=== PATIENT | female | born 2000 | race Caucasian/White ===

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

== ENCOUNTER 2021-02-13 02:58 | Emergency (ER) | payer OTHER ==
[2021-02-13 03:17] VITALS: O2SAT 100
[2021-02-13] MEDS ORDERED: TYLENOL 325 MG PO ONE (03:38)
--- NOTE | 2021-02-13 03:43 | ERPHSYRPT ---
- History of Present Illness Source: patient Exam Limitations: no limitations Physician History: The patient is a 20-year-old female with a past medical history significant for psoriatic arthritis presents with a chief complaint of a cough and headache. Onset was around 1700 yesterday evening. In addition to her cough and headache she was also noted to have a fever of 101 Fahrenheit in triage. She states she is got a couple family members at home that have similar symptoms to include fever and cough in addition to rhinorrhea. The patient diarrhea, loss of sense of taste and smell, myalgias, abdominal pain, dysuria, neck pain, sore throat. She reportedly started taking amoxicillin this evening after her family numbers called Dr. Franco Timing/Duration: today Associated Symptoms: nausea, cough, headaches Allergies/Adverse Reactions: No Known Drug Allergies Allergy (Unverified 02/13/21 03:17) Home Medications: metHOTREXate sodium [Methotrexate] 250 mg PO WEEKLY 11/16/15 [History] Cetirizine HCl [Zyrtec] 10 mg PO DAILY 09/16/17 [History] Infliximab 100 mg [Remicade 100MG Injection] 100 mg IJ DIRECTIONS UNKNOWN 11/23/18 [History] Ergocalciferol (Vitamin D2) [Vitamin D] 50,000 units PO WEEKLY 02/13/21 [History] Pnv No.103/Folic/Om3s/Fish Oil [ Gummies] 2 tab PO DAILY 02/13/21 [History] Hx Tetanus, Diphtheria Vaccination/Date Given: Yes Hx Influenza Vaccination/Date Given: No Hx Pneumococcal Vaccination/Date Given: No - Review of Systems Respiratory: Cough, No Dyspnea, No Dyspnea on Exertion (HERNANDEZ) Cardiac: No Chest Pain Abdominal/Gastrointestinal: Nausea, No Vomiting, No Diarrhea Genitourinary Symptoms: No Dysuria, No Frequency, No Hematuria, No , No Vaginal Bleeding, No Vaginal Discharge Musculoskeletal: Back Pain, Myalgias, No Neck Pain Skin: No Rash Neurological: Headache Psychological: No Symptoms All Other Systems: Reviewed and Negative - Past Medical History Pertinent Past Medical History: Yes Neurological History: No Pertinent History ENT History: No Pertinent History Cardiac History: No Pertinent History Respiratory History: No Pertinent History Endocrine Medical History: No Pertinent History Musculoskeletal History: Arthritis GI Medical History: No Pertinent History History: No Pertinent History Psycho-Social History: No Pertinent History Female Reproductive Disorders: No Pertinent History Other Medical History: Psoriatic Arthritis - Past Surgical History Past Surgical History: Yes Neuro Surgical History: No Pertinent History Cardiac: No Pertinent History Respiratory: No Pertinent History Gastrointestinal: Appendectomy Genitourinary: No Pertinent History Musculoskeletal: Other Female Surgical History: No Pertinent History Other Surgical History: HX Right Heel FX - Social History Smoking Status: Never smoker Exposure to second hand smoke: Yes Drug Use: none Patient Lives Alone: No - Nursing Vital Signs Nursing Vital Signs: Initial Vital Signs Temperature 101.2 F 02/13/21 03:15 Pulse Rate 103 H 02/13/21 03:15 Respiratory Rate 18 02/13/21 03:15 Blood Pressure 124/84 02/13/21 03:15 O2 Sat by Pulse Oximetry 100 02/13/21 03:15 Pain Scale Pain Intensity [Lower Back] 9 Pain Intensity [Head] 9 Pain Intensity 7 - Physical Exam General Appearance: no apparent distress Eye Exam: PERRL/EOMI, eyes nml inspection, No scleral icterus Ears, Nose, Throat Exam: normal ENT inspection, TMs normal, pharynx normal, moist mucous membranes, No dry mucous membranes, No pharyngeal erythema Neck Exam: non-tender, supple, No meningismus Respiratory Exam: normal breath sounds, lungs clear, airway intact, No chest tenderness, No respiratory distress, No diminished breath sounds Cardiovascular Exam: normal heart sounds, normal peripheral pulses, tachycardia, No murmur, No edema Gastrointestinal/Abdomen Exam: soft, No tenderness, No distention, No mass, No guarding Back Exam: normal inspection Extremity Exam: normal inspection Neurologic Exam: alert, oriented x 3, cooperative Skin Exam: normal color, dry, other (Skin was hot to touch), No rash, No petechiae, No jaundice, No cyanosis SpO2 Interpretation: normal SpO2: 100 O2 Delivery: Room Air - Course Nursing assessment & vital signs reviewed: Yes Ordered Tests: Active Orders 24 hr Category Date Time Status CHEST 1 VIEW (PORTABLE) Stat Exams 02/13/21 03:39 Taken BMP Stat Lab 02/13/21 03:59 Completed CBC W DIFF Stat Lab 02/13/21 03:59 Completed HCG,QUALITATIVE URINE Stat Lab 02/13/21 03:59 Completed UA W/RFX UR CULTURE Stat Lab 02/13/21 03:43 Completed Medication Summary Discontinued Medications Generic Name Dose Route Start Last Admin Trade Name Freq PRN Reason Stop Dose Admin Acetaminophen 975 mg 02/13/21 03:38 02/13/21 03:48 Tylenol 325 Mg PO 02/13/21 03:39 975 mg STAT ONE Administration Acetaminophen Confirm 02/13/21 03:48 Tylenol 325 Mg Administered 02/13/21 03:49 Dose 975 mg .ROUTE .STK-MED ONE Lab/Rad Data: Laboratory Result Diagrams 02/13/21 03:59 02/13/21 03:59 Laboratory Results 02/13/21 02/13/21 02/13/21 Range/Units 04:03 03:59 03:59 WBC 7.8 (4.0-10.5) K/mm3 RBC 4.94 (4.1-5.4) M/mm3 Hgb 13.3 (12.0-16.0) gm/dl Hct 42.4 (35-47) % MCV 85.8 (78-100) fl MCH 26.9 (26-32) pg MCHC 31.4 L (32-36) g/dl RDW 14.8 H (11.5-14.0) % Plt Count 231 (150-450) K/mm3 MPV 12.7 H (7.5-11.0) fl Gran % 75.3 H (36.0-66.0) % Eos # (Auto) 0.02 (0-0.5) Absolute Lymphs (auto) 0.95 L (1.0-4.6) Absolute Monos (auto) 0.93 (0.0-1.3) Lymphocytes % 12.2 L (24.0-44.0) % Monocytes % 11.9 (0.0-12.0) % Eosinophils % 0.3 (0.00-5.0) % Basophils % 0.3 (0.0-0.4) % Absolute Granulocytes 5.88 (1.4-6.9) Basophils # 0.02 (0-0.4) Sodium 138 (137-145) mmol/L Potassium 3.6 (3.5-5.1) mmol/L Chloride 103 (98-107) mmol/L Carbon Dioxide 22 (22-30) mmol/L Anion Gap 16.8 H (5-15) MEQ/L BUN 8 (7-17) mg/dL Creatinine 0.78 (0.52-1.04) mg/dL Estimated GFR > 60.0 ML/MIN Glucose 100 (74-106) mg/dL Calcium 9.5 (8.4-10.2) mg/dL Urine Color (YELLOW) Urine Appearance (CLEAR) Urine pH (5-6) Ur Specific [place] (1.005-1.025) Urine Protein (Negative) Urine Ketones (NEGATIVE) Urine Blood (0-5) Dominik/ul Urine Nitrite (NEGATIVE) Urine Bilirubin (NEGATIVE) Urine Urobilinogen (0-1) mg/dL Ur Leukocyte Esterase (NEGATIVE) Urine WBC (Auto) (0-5) /HPF Urine RBC (Auto) (0-2) /HPF U Epithel Cells (Auto) (FEW) /HPF Urine Bacteria (Auto) (NEGATIVE) /HPF Urine Mucus (Auto) (NEGATIVE) /HPF Urine Culture Reflexed (NO) Urine Glucose (NEGATIVE) mg/dL Urine HCG, Qual (Negative) SARS-CoV-2 (PCR) NEGATIVE (NEGATIVE) 02/13/21 02/13/21 Range/Units 03:59 03:43 WBC (4.0-10.5) K/mm3 RBC (4.1-5.4) M/mm3 Hgb (12.0-16.0) gm/dl Hct (35-47) % MCV (78-100) fl MCH (26-32) pg MCHC (32-36) g/dl RDW (11.5-14.0) % Plt Count (150-450) K/mm3 MPV (7.5-11.0) fl Gran % (36.0-66.0) % Eos # (Auto) (0-0.5) Absolute Lymphs (auto) (1.0-4.6) Absolute Monos (auto) (0.0-1.3) Lymphocytes % (24.0-44.0) % Monocytes % (0.0-12.0) % Eosinophils % (0.00-5.0) % Basophils % (0.0-0.4) % Absolute Granulocytes (1.4-6.9) Basophils # (0-0.4) Sodium (137-145) mmol/L Potassium (3.5-5.1) mmol/L Chloride (98-107) mmol/L Carbon Dioxide (22-30) mmol/L Anion Gap (5-15) MEQ/L BUN (7-17) mg/dL Creatinine (0.52-1.04) mg/dL Estimated GFR ML/MIN Glucose (74-106) mg/dL Calcium (8.4-10.2) mg/dL Urine Color YELLOW (YELLOW) Urine Appearance CLEAR (CLEAR) Urine pH 8.0 (5-6) Ur Specific [place] 1.013 (1.005-1.025) Urine Protein NEGATIVE (Negative) Urine Ketones TRACE (NEGATIVE) Urine Blood NEGATIVE (0-5) Dominik/ul Urine Nitrite NEGATIVE (NEGATIVE) Urine Bilirubin NEGATIVE (NEGATIVE) Urine Urobilinogen 4 (0-1) mg/dL Ur Leukocyte Esterase NEGATIVE (NEGATIVE) Urine WBC (Auto) 0-2 (0-5) /HPF Urine RBC (Auto) 0-2 (0-2) /HPF U Epithel Cells (Auto) RARE (FEW) /HPF Urine Bacteria (Auto) RARE (NEGATIVE) /HPF Urine Mucus (Auto) SLIGHT (NEGATIVE) /HPF Urine Culture Reflexed NO (NO) Urine Glucose NEGATIVE (NEGATIVE) mg/dL Urine HCG, Qual NEGATIVE (Negative) SARS-CoV-2 (PCR) (NEGATIVE) - Progress Progress: improved Progress Note: 02/13/21 06:24 The patient presents with a headache myalgias cough and appears to have a fever. She states this is in the context of family members that have similar symptoms. Chest x-ray showed no evidence of pneumonia and her laboratory work- up was relatively benign. There is no evidence of UTI on her UA and her COVID- 19 testing was negative. I have a low suspicion for meningitis and therefore LP was deferred. I suspect the patient at least has a viral URI. Her fever resolved and symptoms improved after receiving Tylenol. It certainly possible that the patient could have had a false negative test for COVID-19. I informed her of this and instructed her to quarantine until she is at least asymptomatic and afebrile for 24 hours. She was also instructed to return to the emergency department if her symptoms became worse, specifically any shortness of breath. Instructed to discontinue her immunosuppressants until her symptoms have resolved. She agreed with and verbally understood the discharge plan and was comfortable with being discharged home. Counseled pt/family regarding: lab results, diagnosis, need for follow-up, rad results - Departure Departure Disposition: Home Clinical Impression: Viral URI with cough, Fever, Viral syndrome Condition: Stable Critical Care Time: No Referrals: ONEAL FRANCO MD [Primary Care Provider] - Instructions: Viral Upper Respiratory Infection, Adult (DC) Additional Instructions: Please take acetaminophen and/or ibuprofen as needed for any ongoing fevers aches or pains. You can purchase these medications [id number]. Please take these medications as instructed on the medication bottles. You tested negative for Covid however this may be a false negative. I would recommend that you quarantine until your asymptomatic and without fever for the at least 24 hours. If your symptoms become worse, specifically if you start to develop shortness of breath please return to the emergency department immediately for further evaluation management. Please hold your methotrexate and immunosuppressants until your symptoms have resolved, specifically your fever. Prescriptions: Benzonatate [Tessalon Perle] 100 mg PO [id number] PRN #30 capsule PRN Reason: Cough
[2021-02-13] MEDS ORDERED: TYLENOL 325 MG ONE (03:48)
[2021-02-13 04:11] LABS: Absolute Neutrophil Ct (ANC) 5.88 (1.4-6.9); BASOPHIL % 0.3 % (0.0-0.4); Basophil (Absolute #) 0.02 (0-0.4); Eosinophil % 0.3 % (0.00-5.0); Eosinophil (Absolute #) 0.02 (0-0.5); Hematocrit 42.4 % (35-47); Hemoglobin 13.3 gm/dl (12.0-16.0); Lymphocyte (Absolute #) 0.95 (1.0-4.6); Lymphocytes % 12.2 % (24.0-44.0); Mean Cell Volume 85.8 fl (78-100); Mean Corpuscular Hemoglobin 26.9 pg (26-32); Mean Corpuscular Hgb Concent. 31.4 g/dl (32-36); Mean Platelet Volume 12.7 fl (7.5-11.0); Monocyte (Absolute #) 0.93 (0.0-1.3); Monocytes % 11.9 % (0.0-12.0); Neutrophil % 75.3 % (36.0-66.0); Platelet Count 231 K/mm3 (150-450); Red Blood Count 4.94 M/mm3 (4.1-5.4); Red Cell Distribution Width 14.8 % (11.5-14.0); White Blood Count 7.8 K/mm3 (4.0-10.5)
[2021-02-13 04:13] LABS: Appearance CLEAR (CLEAR); Bacteria RARE /HPF (NEGATIVE); Bilirubin NEGATIVE (NEGATIVE); Blood NEGATIVE Ery/ul (0-5); Epithelial Cells RARE /HPF (FEW); Glucose NEGATIVE (NEGATIVE); Ketones TRACE (NEGATIVE); Leukocyte Esterase NEGATIVE (NEGATIVE); Mucus SLIGHT /HPF (NEGATIVE); Nitrite NEGATIVE (NEGATIVE); Protein,Urine Dip NEGATIVE (Negative); RBC 0-2 /HPF (0-2); Specific Gravity 1.013 (1.005-1.025); Urobilinogen 4 mg/dL (0-1); WBC 0-2 /HPF (0-5)
[2021-02-13 04:22] LABS: ANION GAP 16.8 MEQ/L (5-15); BLOOD UREA NITROGEN 8 mg/dL (7-17); CHLORIDE 103 mmol/L (98-107); Calcium 9.5 mg/dL (8.4-10.2); Carbon Dioxide 22 mmol/L (22-30); Creatinine 1 0.78 mg/dL (0.52-1.04); EST GLOMERULAR FILTRATION RATE > 60.0 ML/MIN; Glucose 100 mg/dL (74-106); Potassium 3.6 mmol/L (3.5-5.1); SODIUM 138 mmol/L (137-145)
[2021-02-13 05:10] VITALS: BP 121/78; PULSE 100
--- NOTE | 2021-02-13 09:17 | XRAY ---
Indication: Fever, cough, and congestion. Comparison: May 04, 2019. Portable chest again demonstrates normal heart, lungs, and bony thorax.
== END 2021-02-13 05:32 | disposition home or self-care (01) ==
LOC: ED 02:58
DX: J06.9 Acute upper respiratory infection, unspecified (principal); B34.9 Viral infection, unspecified; R51.9 Headache, unspecified; R05 Cough; R50.9 Fever, unspecified; Z79.899 Other long term (current) drug therapy
CPT/HCPCS: 36415; 71045; 80048; 81001; 84703; 85025; 99284; U0003; A9270-GY

== ENCOUNTER 2021-11-06 21:30 | Emergency (ER) | payer OTHER ==
[2021-11-06 21:43] VITALS: O2SAT 100
[2021-11-06 22:09] LABS: Bacteria MODERATE /HPF (NEGATIVE); Epithelial Cells RARE /HPF (FEW); Mucus SLIGHT /HPF (NEGATIVE); RBC 0-2 /HPF (0-2)
[2021-11-06 22:10] LABS: Appearance CLEAR (CLEAR); Bilirubin NEGATIVE (NEGATIVE); Dipstick done @ ? MAIN LAB; Glucose NEGATIVE (NEGATIVE); Ketones NEGATIVE (NEGATIVE); Nitrite NEGATIVE (NEGATIVE); Ph 6.5 (5-6); Protein,Urine Dip NEGATIVE (Negative); RBC NEGATIVE Ery/ul (0-5); Specific Gravity >=1.030 (1.005-1.025); Urobilinogen 0.2 mg/dL (0-1)
[2021-11-06 22:36] VITALS: BP 131/76; PULSE 80
[2021-11-06] MEDS ORDERED: BACTRIM DS TABLET PO ONE (22:39)
[2021-11-06] MEDS: BACTRIM DS TABLET PO STA (22:43)
--- NOTE | 2021-11-06 22:44 | ERPHSYRPT ---
- History of Present Illness Time Seen by Provider: 11/06/21 21:42 Source: patient Exam Limitations: no limitations Patient Subjective Stated Complaint: burning on urination and frequent urination Triage Nursing Assessment: pt c/o burning on urination and frequent urination. Pt c/o pain in miracle area. Pt has hx of frequent UTI's. Pt started taking Cipro yesterday (has taken 3 tabs total). The cipro is an old prescription that she had on hand. Physician History: 21-year-old with multiple UTIs in the past presented in the ER with 2 days history of increased dysuria, frequency with hematuria. Patient has taken le ftover Cipro with no significant relief. Denies any fever or chills. Minimal suprapubic discomfort. Timing/Duration: day(s) (2), gradual onset, worse Activites at Onset: rest Quality: burning Onset Location: suprapubic, urethral Pain Radiation: suprapubic, urethral Severity of Pain-Max: moderate Severity of Pain-Current: moderate Prior abdominal problems: similar symptoms, UTI Sexual intercourse history: non-contributory Modifying Factors: Worsens With: urinating Associated Symptoms: dysuria, urinary frequency, No , No loss of bladder control, No lower back pain, No lumps Allergies/Adverse Reactions: No Known Drug Allergies Allergy (Verified 11/06/21 21:49) Home Medications: metHOTREXate sodium [Methotrexate] 250 mg PO WEEKLY 11/16/15 [History] Infliximab [Remicade 100MG Injection] 100 mg IJ DIRECTIONS UNKNOWN 11/23/18 [History] Ergocalciferol (Vitamin D2) [Vitamin D] 50,000 units PO WEEKLY 02/13/21 [History] Pnv No.103/Folic/Om3s/Fish Oil [ Gummies] 2 tab PO DAILY 02/13/21 [History] Ciprofloxacin [Cipro 500 MG] 1 tab PO BID 11/06/21 [History] Sertraline HCl 50 mg [Zoloft 50 mg Tablet] 75 mg PO DAILY 11/06/21 [History] Hx Tetanus, Diphtheria Vaccination/Date Given: Yes Hx Influenza Vaccination/Date Given: No Hx Pneumococcal Vaccination/Date Given: No Travel Risk - International Travel Have you traveled outside of the country in past 3 weeks: No - Coronavirus Screening Are you exhibiting any of the following symptoms?: No Close contact with a COVID-19 positive Pt in past 14-21 Days: No - Vaccine Status Have you recieved a Covid-19 vaccination: No - Review of Systems Constitutional: No Symptoms Respiratory: No Symptoms Cardiac: No Symptoms Abdominal/Gastrointestinal: No Symptoms Genitourinary Symptoms: Dysuria, Frequency, Hematuria Musculoskeletal: No Symptoms Skin: No Symptoms Neurological: No Symptoms Endocrine: No Symptoms Hematologic/Lymphatic: No Symptoms - Past Medical History Pertinent Past Medical History: Yes Neurological History: No Pertinent History ENT History: No Pertinent History Cardiac History: No Pertinent History Respiratory History: No Pertinent History Endocrine Medical History: No Pertinent History Musculoskeletal History: Arthritis GI Medical History: No Pertinent History History: Other Psycho-Social History: No Pertinent History Female Reproductive Disorders: No Pertinent History Other Medical History: Psoriatic Arthritis, frequent UTI's - Past Surgical History Past Surgical History: Yes Neuro Surgical History: No Pertinent History Cardiac: No Pertinent History Respiratory: No Pertinent History Gastrointestinal: Appendectomy Genitourinary: No Pertinent History Musculoskeletal: Other Female Surgical History: No Pertinent History Other Surgical History: HX Right Heel FX - Social History Smoking Status: Never smoker Exposure to second hand smoke: Yes Drug Use: none Patient Lives Alone: No - Female History Hx Last Menstrual Period: 2 weeks ago Hx Now: No - Nursing Vital Signs Nursing Vital Signs: Initial Vital Signs Temperature 97.3 F 11/06/21 21:30 Pulse Rate 83 11/06/21 21:30 Respiratory Rate 18 11/06/21 21:30 Blood Pressure 131/79 11/06/21 21:30 O2 Sat by Pulse Oximetry 100 11/06/21 21:30 Pain Scale Pain Intensity 10 - Physical Exam General Appearance: no apparent distress, alert Neck Exam: normal inspection, non-tender, supple, full range of motion Respiratory Exam: normal breath sounds, lungs clear Cardiovascular Exam: regular rate/rhythm, normal heart sounds Gastrointestinal/Abdomen Exam: soft, normal bowel sounds, No tenderness Back Exam: No CVA tenderness Extremity Exam: normal inspection, normal range of motion Neurologic Exam: alert, oriented x 3, cooperative Skin Exam: normal color SpO2 Interpretation: normal SpO2: 100 O2 Delivery: Room Air Ordered Tests: Active Orders 24 hr Category Date Time Status CULTURE,URINE Stat Lab 11/06/21 21:48 Received HCG,QUALITATIVE URINE Stat Lab 11/06/21 21:48 Completed Medication Summary Discontinued Medications Generic Name Dose Route Start Last Admin Trade Name Lisa PRN Reason Stop Dose Admin Trimethoprim/Sulfamethoxazole 1 tab 11/06/21 22:34 Smz/Tmp Ds Tablet 1 Tablet PO 11/06/21 22:35 STAT STA Lab/Rad Data: Laboratory Results 11/06/21 11/06/21 Range/Units 21:48 21:48 Urinalys Dipstick Clnc MAIN LAB Urine Color YELLOW (YELLOW) Urine Appearance CLEAR (CLEAR) Urine pH 6.5 (5-6) Ur Specific [place] >=1.030 (1.005-1.025) POC Urine Protein Conf NEGATIVE (Negative) Urine Ketones NEGATIVE (NEGATIVE) Urine Nitrite NEGATIVE (NEGATIVE) Urine Bilirubin NEGATIVE (NEGATIVE) Urine Urobilinogen 0.2 (0-1) mg/dL Urine Leukocytes NEGATIVE (NEGATIVE) Urine WBC (Auto) 6-10 (0-5) /HPF Urine RBC (Auto) 0-2 (0-2) /HPF U Epithel Cells (Auto) RARE (FEW) /HPF Urine Bacteria (Auto) MODERATE (NEGATIVE) /HPF Urine RBC NEGATIVE (0-5) Dominik/ul Urine Mucus (Auto) SLIGHT (NEGATIVE) /HPF Ur Culture Indicated? YES Urine Glucose NEGATIVE (NEGATIVE) mg/dL Urine HCG, Qual NEGATIVE (Negative) - Progress Progress: improved Air Movement: good Progress Note: 11/06/21 22:43 Does have UTI, started on Bactrim, outpatient follow-up recommended. Discussed signs symptoms of worsening needing return to ER which she seems understanding. Blood Culture(s) Obtained: No Antibiotics given: Yes Counseled pt/family regarding: lab results, diagnosis, need for follow-up - Departure Departure Disposition: Home Clinical Impression: Acute UTI Condition: Stable Critical Care Time: No Referrals: ONEAL FRANCO MD [Primary Care Provider] - Follow Up with PCP/3 days Instructions: Urinary Tract Infection, Adult (DC) Additional Instructions: Take Tylenol/ibuprofen as needed. Follow-up with primary care physician for reevaluation. Return to ER for worsening pain/fever chills/flank pain etc. Prescriptions: Smz/Tmp Ds Tablet [Bactrim Ds Tablet] 1 udtab PO BID #14 tablet
== END 2021-11-06 22:54 | disposition home or self-care (01) ==
LOC: ED 21:30
DX: N39.0 Urinary tract infection, site not specified (principal); R30.0 Dysuria; R35.0 Frequency of micturition; R10.2 Pelvic and perineal pain; Z79.899 Other long term (current) drug therapy
CPT/HCPCS: 81015; 84703; 87086; 99283; A9270-GY